=== PATIENT | female | born 1990 | race Two or more races ===

== ENCOUNTER 2020-04-08 17:13 | Emergency (ER) | payer SELFPAY ==
[~2020-04-08] VITALS: Ht 152.4 cm; Wt 105.0 kg
[2020-04-08] MEDS ORDERED: ASPIRIN 81MG TABLET PO ONE (17:45)
[2020-04-08] MEDS: NITROGLYCERIN 0.4MG TABLET SL SL PRN ×2 (18:02→18:12)
[2020-04-08 18:09] LABS: HEMATOCRIT. 33.1 % (36.0-48.0); HEMOGLOBIN. 10.5 g/dL (12.0-16.0); MEAN CORPUSCULAR HEMOGLOBIN 29.3 pg (28.0-32.0); MEAN CORPUSCULAR VOLUME 92.5 fL (81.0-99.0); MEAN PLATELET VOLUME 8.2 fl (7.4-10.4); PLATELET 398 x1000/uL (130-400); RED BLOOD CELL COUNT 3.58 mill/uL (4.2-5.4); RED CELL DISTRIBUTION WIDTH 15.6 % (11.6-14.6)
[2020-04-08 18:17] LABS: CHLORIDE 105 mEq/L (98-107)
[2020-04-08 18:20] LABS: ETHANOL BLOOD < 10 mg/dL
[2020-04-08 18:23] LABS: HCG SCREEN POSITIVE
[2020-04-08] MEDS ORDERED: FUROSEMIDE 40MG/4ML VIAL IVP ONE ×2 (18:45→20:00)
[2020-04-08 18:48] LABS: NUCLEATED RED BLOOD CELLS 1 /100 WBC; PLATELET ESTIMATE NORMAL
[2020-04-08 20:25] LABS: BG BASE EXCESS -2.1 mmol/L (-2.0-2.0); BG CARBOXYHEMOGLOBIN 0.1 % (0.5-1.5); BG DEOXYHEMOGLOBIN 30.3 % (0.0-5.0); BG FRACTION INSPIRED OXYGEN 100; BG METHEMOGLOBIN 0.3 % (0.0-1.5); BG OXYGEN SATURATION 69.6 % (92.0-98.5); BG OXYHEMOGLOBIN 69.3 % (94.0-97.0); BG PCO2 30.5 mmHg (35.0-45.0); BG PH 7.455 (7.350-7.450); BG PO2 39.1 mmHg (75.0-100.0); BG SAMPLE SITE RIGHT RADIAL; BG TOTAL HEMOGLOBIN 11.8 g/dL (12.0-18.0); BG VENT MODE MASK - NRB
[2020-04-08 20:53] LABS: *BARBITURATES SCREEN URINE NEGATIVE (NEGATIVE); *BENZODIAZEPINES SCREEN URINE NEGATIVE (NEGATIVE); *COCAINE SCREEN URINE NEGATIVE (NEGATIVE)
[2020-04-08 20:54] LABS: CANNABINOID URINE SCREEN NEGATIVE (NEGATIVE); METHADONE URINE SCREEN NEGATIVE (NEGATIVE); OPIATES URINE SCREEN NEGATIVE (NEGATIVE); PHENCYCLIDINE URINE SCREEN NEGATIVE (NEGATIVE)
[2020-04-08 20:55] LABS: *AMPHETAMINES SCREEN URINE NEGATIVE (NEGATIVE)
[2020-04-08] MEDS ORDERED: LORAZEPAM 2MG/ML CPJ IV ONE ×2 (21:15→21:30)
[2020-04-08] MEDS ORDERED: NITROGLYCERIN OINT 1GM/INCH UDPKT TD ONE (21:30)
[2020-04-08] MEDS ORDERED: VANCOMYCIN 1 G PREMIX 200 ML IV ONE (22:45)
[2020-04-08] MEDS ORDERED: PIPERACILLIN/TAZ 3.375G PREMIX 50 ML IV ONE (22:45)
[2020-04-08] MEDS ORDERED: ENOXAPARIN 120MG/0.8ML SYR SUBCUT ONE (22:45)
[2020-04-08 23:15] VITALS: BP 168/99
[2020-04-08] MEDS ORDERED: PROPOFOL 10MG/ML 100ML 100 ML IV ONE (23:15)
[2020-04-08] MEDS ORDERED: ETOMIDATE 2MG/ML 10ML VIAL IV ONE (23:15)
[2020-04-08] MEDS ORDERED: SUCCINYLCHOLINE CHLORIDE 200MG/10ML IV ONE (23:15)
[2020-04-08] MEDS ORDERED: MIDAZOLAM HCL 50 MG in DEXTROSE 5% WATER 40 ML IV ONE (23:15)
[2020-04-08] MEDS ORDERED: MIDAZOLAM HCL 100 MG in DEXT 5% WATER 80 ML IV ONE (23:30)
[2020-04-08] MEDS ORDERED: IOHEXOL-300 100 ML BOTTLE ONE (23:36)
== END 2020-04-09 05:15 | disposition expired ==
LOC: ER 17:13 → EDBEDREQ 19:02 → EDBEDREQTM 19:02 → EDBEDREQSVC 19:02 → EDBEDREQ 20:05 → EDBEDREQTM 20:05 → EDBEDREQSVC 21:44 → EDBEDREQTM 21:44 → CANBEDREQ 04-09 00:13 → ER 04-09 05:15
DX: R09.02 Hypoxemia (principal); I50.9 Heart failure, unspecified; U07.1 COVID-19; I21.3 ST elevation (STEMI) myocardial infarction of unspecified site; Z98.890 Other specified postprocedural states
CPT/HCPCS: 31500; 36415; 36556; 36600; 71045; 71275; 80053; 80305; 80320; 82375; 82805; 83880; 84484; 84703; 85025; 87040; 87076; 87635; 93005; 96374; 96375; 96376; 99291; C9803; J1650; J1940; J2060; J2704; Q9967; Z7610; J2250; J7060; G0480